=== PATIENT | male | born 1960 | race Caucasian/White ===

== ENCOUNTER 2016-08-06 10:36 | Emergency (ER) | payer OTHER ==
[~2016-08-06] VITALS: Ht 170.2 cm; Wt 64.5 kg
[~2016-08-06 10:36] MED LIST: CEPH500C PO; EFAV1TAB4 PO; ELVI1TAB PO; HYDR-906 PO; IBUP-1542 PO; IBUP800T25 PO; LANT3I SC; METF-388 PO; RALT400T4 PO
[2016-08-06 10:51] VITALS: Ht 170.2 cm; Wt 64.5 kg
[2016-08-06] MEDS ORDERED: ACETAMINOPHEN 500 MG TAB PO STA (11:35)
[2016-08-06] MEDS ORDERED: IBUPROFEN 600 MG TAB PO ONE (12:00)
[2016-08-06] MEDS ORDERED: ACET325T33 PO (14:22)
[2016-08-06] MEDS ORDERED: CEPH-443 PO (14:22)
[2016-08-06] MEDS ORDERED: IBUP-1542 PO (14:22)
--- NOTE | 2016-08-06 14:46 | RADRPT ---
AMENDMENT: 08/06/2016 12:50:32 PM aDny Harmon MD Nondisplaced transverse fracture of the base of the proximal second phalanx. PROCEDURE: Left great toe x-ray. CLINICAL INDICATION: Left great toe pain distally. TECHNIQUE: AP, lateral, oblique views of the left great toe. COMPARISON: None. FINDINGS: No evidence of fracture or dislocation. Moderate periarticular soft tissue swelling at the distal i nterphalangeal joint. IMPRESSION: No acute fracture or dislocation. Mild periarticular soft tissue swelling at the first distal inter phalangeal joint. RPTAT:AAJJ. Physician Molly Date Time Electronically viewed and signed by Physician Molly on 08/06/2016 12:50 LILIANA/
--- NOTE | 2016-08-06 14:46 | RADRPT ---
PROCEDURE: X-ray of the left toes. CLINICAL INDICATION: Dropped object on foot. TECHNIQUE: AP, lateral, and oblique views of the anterior left foot. COMPARISON: None. FINDINGS: Nondisplaced transverse fracture of the base of the second proximal phalanx. No other fracture or d islocation. IMPRESSION: Nondisplaced transverse fracture of the base of the second proximal phalanx. No other fracture or d islocation. RPTAT:AAJJ Physician Molly Date Time Electronically viewed and signed by Physician Molly on 08/06/2016 12:49 LILIANA/
--- NOTE | 2016-08-06 14:56 | ERD ---
ER Documentation Chief Complaint Date/Time DATE: 08/06/16 TIME: 14:53 Chief Complaint L toe foot pain 1 day, pt tripped overa trash can. HPI Patient says one day ago he dropped a can of paint on his left foot and he has pain in the first and second toe. He also has a history of insulin-dependent diabetes and HIV. Also his left third finger has a red swollen abscess area has already popped he is asking for Keflex. No fevers or chills ROS All systems reviewed and are negative except as per history of present illness. Medications Home Meds Active Scripts Acetaminophen* (Tylenol*) 325 Mg Tablet, 2 TAB PO Q8 Y for PAIN AND OR ELEVATED TEMP, #20 TAB [facility] 08/06/16 Ibuprofen* (Motrin*) 600 Mg Tab, 600 MG PO Q8, #15 TAB [facility] 08/06/16 Cephalexin* (Keflex*) 500 Mg Capsule, 500 MG PO QID for 7 Days, CAP [facility] 08/06/16 Cephalexin* (Cephalexin*) 500 Mg Capsule, 500 MG PO Q6 for 7 Days, #28 CAP Prov:LORETTASHAILESH RIZVI C 07/08/16 Elvitegr/Cobicist/Emtric/Tenof (STRIBILD TABLET) 1 Each Tablet, 1 EACH PO QHS for 30 Days, TAB Prov:LORETTA,SHAILESH C 07/08/16 Ibuprofen* (Motrin*) 600 Mg Tab, 600 MG PO Q6, #30 TAB Prov:LORETTASHAILESH RIZVI C 07/08/16 Hydrocodone/Acetaminophen ([place] 5-325 Tablet) 1 Each Tablet, 1 TAB PO Q6H Y for PAIN, #10 TAB Prov:SHAILESH BURGOS C 07/08/16 Ibuprofen* (Motrin*) 800 Mg Tab, 800 MG PO Q6, #30 TAB Prov:GUILLE LEDESMA DO 06/16/15 Metformin Hcl* (Metformin Hcl*) 1,000 Mg Tablet, 1000 MG PO WITH BREAKFAST DINNE , #60 TAB Prov:ANASTASIYA AVALOS MD 06/12/15 Insulin Glargine* (Lantus*) 100 Unit/Ml Soln, 18 UNIT SC HS, #1 BOTTLE Prov:ANASTASIYA AVALOS MD 06/12/15 Trdgmichu-Kpodqfsedkpbt-Zlaqvfshc (Atripla) 600-200-300 Mg Tablet, 1 TAB PO QHS , #30 TAB Prov:RAI DANIEL PA-C 06/02/15 Reported Medications Raltegravir Potassium* (Isentress*) 400 Mg Tablet, 400 MG PO BID, TAB 06/10/15 Allergies Allergies: Coded Allergies: No Known Allergy (Unverified , 08/06/16) PMhx/Soc History of Surgery: Yes (skin graft on chest, r.leg) Anesthesia Reaction: No Hx Neurological Disorder: No Hx Respiratory Disorders: No Hx Cardiac Disorders: No Hx Psychiatric Problems: No Hx Miscellaneous Medical Probl: Yes (HIV, AIDS; DM) Hx Alcohol Use: Yes Hx Substance Use: No Hx Tobacco Use: Yes Smoking Status: Current every day smoker Physical Exam Vitals Vital Signs Date Time Temp Pulse Resp B/P Pulse Ox O2 Delivery O2 Flow Rate FiO2 08/06/16 10:51 97.3 108 18 142/83 99 Physical Exam Const: [] Head: Atraumatic Eyes: Normal Conjunctiva ENT: Normal External Ears, Nose and Mouth. Neck: Full range of motion..~ No meningismus. Resp: Clear to auscultation bilaterally Cardio: Regular rate and rhythm, no murmurs Abd: Soft, non tender, non distended. Normal bowel sounds Skin: No petechiae or rashes Back: No midline or flank tenderness Ext: No cyanosis,. Left foot exam the second toe has mild ecchymosis erythema moderate tenderness to palpation at the base of the second toe, left first toe is swollen and erythematous not tender to palpation no fluctuance. The left third finger at the dorsal mid aspect of the skin has open abscess with surrounding mild erythema and edema. Neur: Awake and alert Psych: Normal Mood and Affect Results 24 hrs Current Medications Medications (Trade) Dose Ordered Sig/Kashif Route PRN Reason Start Time Stop Time Status Last Admin Dose Admin Acetaminophen (Tylenol Tab) 1,000 mg ONCE STAT PO 08/06/16 11:35 08/06/16 11:39 DC 08/06/16 12:04 Ibuprofen (Motrin) 600 mg ONCE ONCE PO 08/06/16 12:00 08/06/16 12:01 DC 08/06/16 12:04 Procedures/MDM The finger appears to be an abscess that has already opened and drained but has still signs of infection with erythema and edema so we will give Keflex. My view of the three-view x-ray of the left foot and left toes shows a nondisplaced fracture of the left second toe at the proximal shaft. Braden tape was applied to the first and second toe for comfort and support. Orthoses shoe was ordered. Neurovascularly intact post splint application. Follow-up PCP ED precautions discussed. Departure Diagnosis: Primary Impression: Toe fracture, left Encounter type: initial encounter Toe: lesser toe Fracture type: closed Phalanx: proximal Fracture alignment: nondisplaced Qualified Code: S92.515A - Closed nondisplaced fracture of proximal phalanx of lesser toe of left foot, initial encounter Additional Impression: Infected hand Condition: Stable Patient Instructions: Staph Infection (non-MRSA), Finger and Toe Fractures ( Broken Finger or Toe) RAVI MENDOZA DO Aug 06, 2016 14:56
== END 2016-08-06 15:15 | disposition left against medical advice (07) ==
LOC: FTE 10:36
DX: S92.515A Nondisplaced fracture of proximal phalanx of left lesser toe(s), initial encounter for closed fracture (principal); L08.89 Other specified local infections of the skin and subcutaneous tissue; F17.210 Nicotine dependence, cigarettes, uncomplicated; E11.9 Type 2 diabetes mellitus without complications; W20.8XXA Other cause of strike by thrown, projected or falling object, initial encounter; Y92.9 Unspecified place or not applicable; Z79.4 Long term (current) use of insulin; Z79.84 Long term (current) use of oral hypoglycemic drugs
CPT/HCPCS: 73660; Z7502; Z7610